=== PATIENT | male | born 1970 | race Caucasian/White ===

== ENCOUNTER → 2020-04-04 15:24 | Outpatient (CLI) | payer OTHER, SELFPAY ==
[2020-04-04 17:15] LABS: COVID19 -Nasal RAPID Negative (Negative)
== END ==
PROVIDERS: Visit Provider Physician Assistant
DX: Z11.59 Encounter for screening for other viral diseases (principal)
CPT/HCPCS: 87635

== ENCOUNTER 2020-04-06 13:46 | Day surgery (SDC) | payer OTHER, SELFPAY ==
--- NOTE | 2020-04-06 | PATH_ITS ---
[facility] Accession Number: [id number] . 01 Material submitted: . PART A: colon - TRANSVERSE COLON POLYP PART B: colon - DESCENDING COLON POLYP . 01 Clinical history: . SDC . 02 Diagnosis: A. Transverse Colon, Polyp: Colonic mucosa with prominent benign lymphoid aggregate. Negative for dysplasia or malignancy. . B. Descending Colon, Polyp: Hyperplastic polyp. MRV 04/08/2020 1045 Local . 02 Electronically signed: . Raimundo Nevarez MD, PhD, Pathologist NPI- [id number] . 01 Gross description: . Part A: TRANSVERSE COLON POLYP: Received in formalin is 1 fragment(s) of fall, soft tissue measuring 0.5 x 0.3 x 0.1 cm submitted entirely in 1 cassette(s) Part B: DESCENDING COLON POLYP: Received in formalin is 1 fragment(s) of fall, soft tissue measuring 0.3 x 0.3 x 0.3 cm submitted entirely in 1 cassette(s) /QBJ 04/07/2020 0938 Local . 02 Pathologist provided ICD-10: K63.5 . 02 CPT . 676204, [id number] Performed at: 01 [facility] [address], [place], [place] [id number] MD Jose Luis Mueller MD Phone: [phone] Performed at: 02 [facility] [address] [place], [place] [id number] MD Jessica Hubbard MD Phone: [phone]
--- NOTE | 2020-04-06 08:04 | PM.HP.1 ---
History of Present Illness History of Present Illness Date Patient Seen: 04/06/20 Chief complaint: SDC Narrative: 49-year-old male who is here for initial screening colonoscopy. There is no known family history of colon polyps or colon cancer Meds Home Medications and Allergies Allergies Allergy/AdvReac Type Severity Reaction Status Date / Time Penicillins Allergy Intermediate Verified 04/06/20 14:00 Exam Narrative Exam Narrative: General: Patient is obese, not in apparent distress Cardiovascular: Regular rate and rhythm, no murmurs, rubs, or gallops; no evidence of edema; no palpable abdominal aortic aneurysm Gastrointestinal: Normoactive bowel sounds, soft, nontender, nondistended, no rebound tenderness, no hepatosplenomegaly, no evidence of hernia Assessment & Plan Assessment & Plan narrative: 49-year-old male who is here for initial screening colonoscopy. He is at average risk for colon cancer Regarding the procedure(s), the risks and potential complications, benefits, and alternatives (including not doing the procedure) were discussed with the patient. The risks include but are not limited to bleeding, splenic injury, infection, perforation which may require surgical intervention, missed lesions, and adverse reactions to sedative medicines. After a question and answer period, the patient agreed to proceed with the procedure(s) and gives informed consent.
[2020-04-06 14:03] VITALS: BP 129/86; PULSE 73; RESP 20; TEMP 36.2; O2SAT 98; BMI 32.3
[2020-04-06] MEDS: SODIUM CHLORIDE 0.9% 1,000 ML 70 ML IV (14:14)
--- NOTE | 2020-04-06 14:26 | PM.OP.ENDO ---
Operative Date/Time/Diagnoses Date of procedure: 04/06/20 Procedure Notes Procedure in detail: Surgeon: Fernandez Soria MD Procedure: Colonoscopy with polypectomy Preoperative diagnosis: Colon cancer screening Postoperative diagnosis: Colon polyps x2 status post polypectomy; left-sided diverticulosis; grade 1 internal hemorrhoids Medications: Conscious sedation using 4 mg IV of Midazolam and 100 mcg IV of Fentanyl Preanesthesia Assessment An H and P was performed/updated and the Px?s ASA class is 2. The procedure was discussed in detail with the patient. The potential risks and complications including infection, bleeding, missed lesions, perforation, need for surgery in case of perforation, prolonged hospital stay, and were explained. A brief question and answer period was allotted and once all questions were answered, informed consent was obtained. The patient was brought back to the procedure room and placed on standard monitoring. The patient?s vital signs were monitored continuously throughout the entire procedure. Prior to starting, a timeout was performed to confirm the patient?s identity, allergies, medications, and procedure. Procedure in detail The patient was placed in left lateral decubitus position and once adequate sedation was obtained a YOLANDA was performed. The digital rectal examination did not reveal any palpable lesions. The tip of the colonoscope was placed in the anal canal and advanced without difficulty all the way to the cecum which was identified by the appendiceal orifice and the ileocecal valve. Careful examination of all coats of the colon was performed with irrigation of any residual stool. In the transverse colon, a 2 mm sessile polyp was removed by means of cold Jumbo forceps. Resection and retrieval was complete with minimal bleeding. In the descending colon, a 2 mm sessile polyp was removed by means of cold Jumbo forceps. Resection and retrieval was complete with minimal bleeding. In the descending and sigmoid colon, multiple medium-sized diverticula were found Retroflexion was performed in the rectum which revealed grade 1 internal hemorrhoids The patient tolerated the procedure well and will be brought back to the recovery area to be discharged once criteria are met. The prep was judged to be good and adequate to identify polyps less than 5 mm. The withdrawal time was 8 minutes. The total physician intraservice time was 15 minutes. Complications There were no complications and estimated blood loss was minimal. Recommendations: Resume previous diet Continue outPx medications Follow up pathology results Repeat colonoscopy in 5 or 7 or 10 years, depending on pathology results An emergency contact number was given to the patient for any complications related to the procedure
[2020-04-06] MEDS: MIDAZOLAM 5 MG/5 ML VIAL IV (14:32)
[2020-04-06] MEDS: fentaNYL 250 MCG/5 ML INJ IV (14:32)
[2020-04-06 14:51] VITALS: BP 110/80; PULSE 69; RESP 15; TEMP 36.3; O2SAT 97
[2020-04-06 14:57] VITALS: BP 128/84; PULSE 81; RESP 11; O2SAT 96
[2020-04-06 15:01] VITALS: BP 134/78; PULSE 68; RESP 12; O2SAT 97
[2020-04-06 15:06] VITALS: BP 126/76; PULSE 65; RESP 14; O2SAT 97
[2020-04-06 15:33] VITALS: BP 128/80; PULSE 72; RESP 18; TEMP 36.3; O2SAT 98
== END 2020-04-06 15:42 | disposition home or self-care (01) ==
PROVIDERS: Referring Provider Internal Medicine Gastroenterology; Visit Provider Internal Medicine Gastroenterology
PROC: 0DJD8ZZ Inspection of Lower Intestinal Tract, Via Natural or Artificial Opening Endoscopic (ICD-10-PCS; CPT 45378; principal; 2020-04-06 14:30)
DX: Z12.11 Encounter for screening for malignant neoplasm of colon (principal); K57.30 Diverticulosis of large intestine without perforation or abscess without bleeding; K64.0 First degree hemorrhoids; K63.5 Polyp of colon
CPT/HCPCS: 45380; J2250; J3010